=== PATIENT | female | born 1990 | race Caucasian/White ===

== ENCOUNTER → 2022-04-18 08:20 | Outpatient (BNVA) | payer BC, SELFPAY | PROVIDERS: Visit Provider Registered Nurse | DX: Z79.899 Other long term (current) drug therapy (principal) | CPT/HCPCS: 80053; 80061; 82306; 82607; 83036; 83540; 84443; 85025 ==

== ENCOUNTER → 2025-04-12 15:11 | Outpatient (BNVA) | payer SELFPAY | PROVIDERS: Visit Provider Registered Nurse Neonatal Intensive Care | DX: R53.83 Other fatigue (principal) | CPT/HCPCS: 81025 ==

== ENCOUNTER 2025-06-09 21:12 | Emergency (ER) | payer SELFPAY ==
[2025-06-09 21:39] VITALS: BP 109/68; PULSE 84; RESP 18; TEMP 36.5; O2SAT 98; BMI 28.3
--- NOTE | 2025-06-09 21:51 | W.ED.EXTPRO ---
HPI - Extremity Problem General: Chief complaint: Extremity Injury, Upper Stated complaint: Right arm injury Time Seen by Provider: 06/09/25 21:44 Source: patient Mode of arrival: ambulatory Limitations: no limitations History of Present Illness: Patient is a 34-year-old female presents the emergency department complaining of right upper extremity pain just prior to arrival. She reportedly got angry and punched a toilet, stating that she heard a pop in her elbow, stating this occurred about 2030. States that she does not have any pain in her hand, just some tingling but primarily her pain is to the right proximal forearm towards the elbow. Pain with range of motion of the right elbow. Has not taken any medications. No other injuries to report. There is an abrasion to the right ulnar hand. MD Complaint: extremity pain Onset (ago): hour(s) Location: right and upper extremity Associated symptoms: Deny chest pain, fever(s) or rash Related Data Home Medications ?Medication ?Instructions ?Recorded ?Confirmed No Known Home Medications 04/12/25 04/12/25 Allergies Allergy/AdvReac Type Severity Reaction Status Date / Time No Known Allergies Allergy Verified 04/12/25 14:42 Review of Systems General: Reports: 10 or more systems reviewed and unremarkable except in HPI and below Const: Denies: fever(s) or chills Card: Denies: chest pain Resp: Denies: dyspnea or productive cough GI: Denies: abdominal pain, nausea, vomiting or diarrhea : Denies: flank pain Musc: Reports: extremity pain (RUE), joint pain (right elbow) and limited range of motion (right elbow); Denies: neck pain, back pain, extremity swelling, joint swelling, joint redness, joint warmth or muscle weakness Skin/Breast: Denies: rash Neuro: Denies: headache(s), numbness in extremities or weakness in extremities PFS ED PFSH: Medical History Bipolar 1 disorder Amphetamine abuse in remission PTSD (post-traumatic stress disorder) Social History Smoking and tobacco/nicotine status: unknown if used tobacco/nicotine Physical Exam Const: COMMON NORMALS: no acute distress, patient oriented x3, no limitations, healthy appearing, alert and well nourished HENMT: COMMON NORMALS: normocephalic and atraumatic HEAD & SCALP: normocephalic and atraumatic Extremity: COMMON NORMALS: full ROM, capillary refill normal, no joint enlargement and no clubbing, cyanosis or edema NARRATIVE EXTREMITY EXAM: Tenderness to palpation to the medial right elbow as well as to the muscles of the right proximal forearm. No obvious signs of trauma or deformity, no swelling or bruising. Range of motion is intact at the right elbow but there is pain endorsed, as well as pain endorsed with pronation and supination at the right forearm. Abrasion to dorsum of right ulnar hand. Neuro: COMMON NORMALS: patient oriented x3, moves all extremities, no focal motor deficits and no sensory deficits noted SENSORIUM/ORIENTATION: Yes alert Course Vital Signs: Vital signs: Vital Signs Temperature 97.7 F 06/09/25 21:39 Pulse Rate 84 06/09/25 21:39 Respiratory Rate 18 06/09/25 21:39 Blood Pressure 109/68 06/09/25 21:39 Pulse Oximetry 98 06/09/25 21:39 Oxygen Delivery Me thod Room Air 06/09/25 21:39 MDM - Extremity (Nontraumatic) Medical Decision Making Patient's x-rays are negative for any acute fractures. I suspect that this is a contusion after she had reported she punched a toilet. Neurovascular exam was intact, this can treat symptomatically at home. Patient informed of normal findings, all the questions and concerns addressed. Lab Data Radiology Impressions Elbow X-Ray 06/09/25 21:54 IMPRESSION: No acute findings. Forearm X-Ray 06/09/25 21:54 IMPRESSION: No acute findings. Hand X-Ray 06/09/25 21:54 IMPRESSION: No fracture. All radiology interpretation(s) finalized by discharge Discharge Plan Discharge Patient Disposition: Home Clinical Impression: Contusion of arm, right Qualifiers: Encounter type: initial encounter Qualified Code(s): S40.021A - Contusion of right upper arm, initial encounter Condition: Stable Prescriptions: No Action No Known Home Medications Discharge Orders: Discharge ED (Routine); Ordered 06/09/25 Ordered By: Freddy Webster Patient Instructions: Patient Portal & Roger Instructions Activity Restrictions/Additional Instructions: Discharge Instructions: Right Upper Extremity Contusion Your Diagnosis You were diagnosed with a contusion (bruise) of your right upper extremity. X-rays of your right hand, forearm, and elbow showed no broken bones. Home Care Instructions Rest: Limit use of your right arm for the next few days. Avoid activities that cause pain or discomfort. Do not lift heavy objects with your right arm. Ice: Apply ice to the injured area for 20-30 minutes at a time, 3-4 times daily for the first 2-3 days. Always wrap ice in a towel or cloth?never place ice directly on your skin to prevent cold injury. Compression: You may use an elastic bandage wrap for comfort if desired. Do not wrap too tightly?if you notice increased pain, numbness, tingling, or color changes in your fingers, loosen or remove the wrap immediately. Elevation: When resting, keep your right arm elevated above the level of your heart to reduce swelling. You can prop it up on pillows. Pain Management: Take [id number] pain medication as directed: - Acetaminophen (Tylenol): 650-1000 mg every 6 hours as needed - Ibuprofen (Advil, Motrin): 400-600 mg every 6-8 hours as needed with food Activity: Gradually return to normal activities as tolerated over the next 1-2 weeks. Listen to your body and avoid activities that cause significant pain. When to Seek Immediate Medical Attention Return to the emergency department or call 911 if you develop any of the following warning signs: - Severe pain that is getting worse or pain that does not improve with pain medication - Increasing pain when you move your fingers, wrist, or elbow (especially pain with gentle stretching) - Numbness or tingling in your hand or fingers that is new or worsening - Inability to move your fingers, wrist, or elbow - Pale, blue, or cold fingers - Absent or weak pulse in your wrist or hand - Severe swelling that is rapidly increasing - Fever (temperature over 100.4?F or 38?C) - Signs of infection: increasing redness, warmth, red streaks, or drainage from any skin breaks Follow-Up Care - If your pain does not improve within 5-7 days, or if you have persistent swelling or difficulty using your arm after 1-2 weeks, contact your primary care doctor or an offender job retention specialist for evaluation. - If pain persists despite normal initial x-rays, additional imaging may be needed to rule out injuries not visible on initial x-rays. Additional Information Most contusions heal within 1-3 weeks with proper rest and care. Some bruising and swelling are normal and may take several days to fully appear. The bruise may change colors (purple, blue, green, yellow) as it heals?this is normal. If you have any questions or concerns about your injury, please contact your healthcare provider. Print Language: Icelandic Coding Level of Care Code ED [employer] for [employer]un [employer]an
--- NOTE | 2025-06-09 21:54 | XRR_ITS ---
PROCEDURE INFORMATION: Exam: XR Right Forearm Exam date and time: 06/09/2025 10:17 PM Age: 34 years old Clinical indication: Injury or trauma; Other: Punching injury; Blunt trauma (contusions or hematomas); Arm, lower; Right; Additional info: Proximal forearm pain after punching toilet TECHNIQUE: Imaging protocol: Radiologic exam of the right forearm. Views: 2 views. COMPARISON: CR ( EX, ) 06/09/2025 10:17 PM FINDINGS: Bones/joints: Normal. Soft tissues: Normal. XR/XR forearm RT 2V [id number] IMPRESSION: No acute findings.
--- NOTE | 2025-06-09 21:54 | XRR_ITS ---
PROCEDURE INFORMATION: Exam: XR Right Hand Exam date and time: 06/09/2025 10:17 PM Age: 34 years old Clinical indication: Injury or trauma; Other: Punching injury; Blunt trauma (contusions or hematomas); Hand; Right; Additional info: Hand trauma, punched toilet TECHNIQUE: Imaging protocol: Radiologic exam of the right hand. Views: 3 or more views. COMPARISON: CR ( EX, ) 06/09/2025 10:17 PM FINDINGS: Bones/joints: Normal. Soft tissues: Dorsal soft tissue swelling overlying the 3rd MCP joint. XR/XR hand RT min 3V* [id number] IMPRESSION: No fracture.
--- NOTE | 2025-06-09 21:54 | XRR_ITS ---
PROCEDURE INFORMATION: Exam: XR Right Elbow Exam date and time: 06/09/2025 10:17 PM Age: 34 years old Clinical indication: Injury or trauma; Other: Punching injury; Blunt trauma (contusions or hematomas); Elbow; Right; Additional info: Pain at medial elbow after punching toilet TECHNIQUE: Imaging protocol: Radiologic exam of the right elbow. Views: 3 or more views. COMPARISON: CR ( EX, ) 06/09/2025 10:17 PM FINDINGS: Bones/joints: Normal. Soft tissues: Normal. XR/XR elbow RT min 3V* [id number] IMPRESSION: No acute findings.
== END 2025-06-10 00:15 | disposition home or self-care (01) ==
PROVIDERS: Emergency Provider Physician Assistant
DX: S40.021A Contusion of right upper arm, initial encounter (principal); W22.8XXA Striking against or struck by other objects, initial encounter
CPT/HCPCS: 73080; 73090; 73130; 99283